=== PATIENT | male | born 1950 | race Caucasian/White ===

== ENCOUNTER 2021-08-29 13:40 | Emergency (ER) | payer MEDICARE, OTHER ==
[~2021-08-29] VITALS: Ht 182.9 cm; Wt 83.2 kg
[2021-08-29 14:20] VITALS: BP 145/63
[2021-08-29] MEDS ORDERED: CEPH250T PO (15:35)
== END 2021-08-29 15:54 | disposition home or self-care (01) ==
LOC: ER 13:41
DX: S80.11XA Contusion of right lower leg, initial encounter (principal); E10.59 Type 1 diabetes mellitus with other circulatory complications; L03.115 Cellulitis of right lower limb; E78.00 Pure hypercholesterolemia, unspecified; I10 Essential (primary) hypertension; Z72.89 Other problems related to lifestyle; Z79.2 Long term (current) use of antibiotics; X58.XXXA Exposure to other specified factors, initial encounter; Y93.89 Activity, other specified; Y92.89 Other specified places as the place of occurrence of the external cause; Y99.8 Other external cause status
CPT/HCPCS: 99283